=== PATIENT | male | born 1985 | race Caucasian/White ===

== ENCOUNTER 2017-04-27 16:05 | Emergency (ER) | payer OTHER ==
[~2017-04-27] VITALS: Ht 182.9 cm; Wt 78.0 kg
[~2017-04-27 16:05] MED LIST: ATENOLOL25 MG PO; CYCLOBENZAPRINE10 MG PO; DOXYCYCLINE HY100 MG PO; IBUPROFEN600 MG PO; KEFLEX500 MG PO; NAPROXEN500 MG PO; NORCO 10-325 T1 EACH PO; NORCO 5-325 TA1 EACH PO; OMEPRAZOLE20 M1 PO; OMEPRAZOLE20 MG PO; PRILOSEC20 MG PO; PROTONIX40 MG PO; TRAMADOL HCL50 MG PO; TYLENOL325 MG; ULTRAM50 MG PO
== END 2017-04-27 16:21 | disposition home or self-care (01) ==
LOC: ED 16:05
DX: Z00.8 Encounter for other general examination (principal)

== ENCOUNTER 2017-06-20 11:44 | Emergency (ER) | payer OTHER ==
[~2017-06-20] VITALS: Ht 182.9 cm; Wt 79.4 kg
== END 2017-06-20 12:02 | disposition home or self-care (01) ==
LOC: ED 11:44

== ENCOUNTER 2017-07-27 08:48 | Emergency (ER) | payer OTHER ==
[~2017-07-27] VITALS: Ht 182.9 cm; Wt 79.4 kg
--- NOTE | 2017-07-27 18:17 | EKG ---
[facility] [address] [facility] [place] [address] Signed Normal sinus rhythm with sinus arrhythmia Normal ECG No previous ECGs available Confirmed by NAILA SHARPE MD ([id number] on 07/27/2017 6:17:20 PM Electronically Signed By: NAILA SHARPE MD 07/27/17 181 PATIENT NAME: JONNATHAN MOSES Electrocardiogram DATE OF : 85 PHYSICIAN: NAILA SHARPE MD REPORT #: [id number] REPORT IS CONFIDENTIAL AND NOT TO BE RELEASED WITHOUT AUTHORIZATION
== END 2017-07-27 11:58 | disposition home or self-care (01) ==
LOC: ED 08:48
DX: S06.0X9A Concussion with loss of consciousness of unspecified duration, initial encounter (principal); K21.9 Gastro-esophageal reflux disease without esophagitis; Z79.899 Other long term (current) drug therapy; F17.200 Nicotine dependence, unspecified, uncomplicated; Z88.0 Allergy status to penicillin; Z98.890 Other specified postprocedural states; W19.XXXA Unspecified fall, initial encounter
CPT/HCPCS: 36415; 70450; 72125; 80053; 84484; 85025; 93005; 93010; 99284; J7030

== ENCOUNTER 2017-08-05 12:20 | Emergency (ER) | payer OTHER ==
[~2017-08-05] VITALS: Ht 182.9 cm; Wt 76.2 kg
[2017-08-05] MEDS ORDERED: CALCIUM CITRAT200 MG PO (12:36)
== END 2017-08-05 12:40 | disposition home or self-care (01) ==
LOC: ED 12:20
DX: S01.21XA Laceration without foreign body of nose, initial encounter (principal); W22.8XXA Striking against or struck by other objects, initial encounter; Y99.0 Civilian activity done for income or pay

== ENCOUNTER 2017-08-10 17:50 | Emergency (ER) | payer OTHER ==
[~2017-08-10] VITALS: Ht 182.9 cm; Wt 76.2 kg
[~2017-08-10 17:50] MED LIST changes: +CALCIUM CITRAT200 MG PO
== END 2017-08-10 19:16 | disposition home or self-care (01) ==
LOC: ED 17:50
DX: S93.602A Unspecified sprain of left foot, initial encounter (principal); F17.200 Nicotine dependence, unspecified, uncomplicated; K21.9 Gastro-esophageal reflux disease without esophagitis; Z98.890 Other specified postprocedural states; Z88.0 Allergy status to penicillin; Z79.899 Other long term (current) drug therapy; V89.9XXA Person injured in unspecified vehicle accident, initial encounter
CPT/HCPCS: 73610; 73630; 99283

== ENCOUNTER 2025-04-07 23:40 | Emergency (ER) | payer OTHER ==
[~2025-04-07] VITALS: Ht 182.9 cm; Wt 83.1 kg
[2025-04-08 00:35] LABS: BASOPHILS 0.9 % (0.2-1.2); EOSINOPHILS 2.0 % (0.8-7.0); LYMPHOCYTES 20.6 % (21.8-53.1); MCH 29.9 PG (25.7-32.2); MCHC 33.3 g/dL (32.3-36.5); MCV 89.8 fL (79.0-92.2); MONOCYTES 9.2 % (5.3-12.2); NEUTROPHILS 67.0 % (34.0-67.9); RBC 4.98 M/uL (4.63-6.08)
[2025-04-08 01:06] LABS: ALCOHOL, MEDICAL <3 ng/dL (<3); ALT (SGPT) 27 U/L (14-59); AST (SGOT) 18 U/L (15-37); GLOMERULAR FILTRATION RATE,EST 119 mL/min (>60); PROTEIN, TOTAL 7.1 g/dL (6.4-8.2); TSH, 3RD GENERATION 2.722 uIU/mL (0.358-3.740); UREA NITROGEN 7 mg/dL (7-18)
[2025-04-08 05:25] LABS: BLOOD/HGB, URINE NEGATIVE (Negative); KETONE, URINE NEGATIVE (Negative); LEUK ESTERASE, URINE NEGATIVE (negative); NITRITE, URINE NEGATIVE (negative)
[2025-04-08 05:30] LABS: AMPHETAMINES, URINE NEGATIVE (NEGATIVE); BARBITURATES, URINE NEGATIVE (NEGATIVE); BENZODIAZEPINE, URINE NEGATIVE (NEGATIVE); CANNABINOID, URINE NEGATIVE (NEGATIVE); COCAINE, URINE NEGATIVE (NEGATIVE); ECSTASY, URINE NEGATIVE (NEGATIVE); FENTANYL, URINE NEGATIVE (NEGATIVE); METHADONE, URINE NEGATIVE (NEGATIVE); OPIATES, URINE NEGATIVE (NEGATIVE); OXYCODONE, URINE NEGATIVE (NEGATIVE); PHENCYCLIDINE, URINE NEGATIVE (NEGATIVE)
[2025-04-08 12:56] VITALS: BP 138/74
== END 2025-04-08 13:00 | disposition home or self-care (01) ==
LOC: ED 23:40
PROVIDERS: Family Medicine
DX: F32.A Depression, unspecified (principal); R45.851 Suicidal ideations; F43.20 Adjustment disorder, unspecified; K21.9 Gastro-esophageal reflux disease without esophagitis; F17.200 Nicotine dependence, unspecified, uncomplicated; Z88.0 Allergy status to penicillin
CPT/HCPCS: 36415; 80053; 80307; 81003; 84443; 85025; 99285; G0480

== ENCOUNTER 2025-05-21 10:26 | Emergency (ER) | payer OTHER ==
[~2025-05-21] VITALS: Ht 182.9 cm; Wt 87.8 kg
[2025-05-21] MEDS ORDERED: FLUOXETINE HCL20 MG PO (10:40)
[2025-05-21] MEDS ORDERED: FAMOTIDINE 20 MG TAB PO ONE (10:45)
[2025-05-21] MEDS ORDERED: predniSONE 20 MG TAB PO ONE (10:45)
[2025-05-21 10:48] LABS: BASOPHILS 0.2 % (0.2-1.2); EOSINOPHILS 0.4 % (0.8-7.0); LYMPHOCYTES 14.2 % (21.8-53.1); MCH 30.1 PG (25.7-32.2); MCHC 34.2 g/dL (32.3-36.5); MCV 87.8 fL (79.0-92.2); MONOCYTES 8.4 % (5.3-12.2); NEUTROPHILS 76.4 % (34.0-67.9); RBC 5.39 M/uL (4.63-6.08)
[2025-05-21 11:02] LABS: ALT (SGPT) 22.0 U/L (14-59); AST (SGOT) 17.0 U/L (15-37); GLOMERULAR FILTRATION RATE,EST 101.0 mL/min (>60); PROTEIN, TOTAL 6.8 g/dL (6.4-8.2); UREA NITROGEN 7.0 mg/dL (7-18)
[2025-05-21] MEDS ORDERED: PREDNISONE20 MG PO (11:29)
[2025-05-21 11:37] VITALS: BP 133/90
== END 2025-05-21 11:37 | disposition home or self-care (01) ==
LOC: ED 10:26
PROVIDERS: Emergency Medicine
DX: L30.9 Dermatitis, unspecified (principal); F17.200 Nicotine dependence, unspecified, uncomplicated; Z88.0 Allergy status to penicillin; Z79.899 Other long term (current) drug therapy
CPT/HCPCS: 36415; 80053; 85025; 99283; J7512

== ENCOUNTER 2025-08-11 11:34 | Emergency (ER) | payer OTHER ==
[~2025-08-11] VITALS: Ht 182.9 cm; Wt 90.8 kg
[~2025-08-11 11:34] MED LIST changes: +FLUOXETINE HCL20 MG PO; +PREDNISONE20 MG PO
[2025-08-11] MEDS ORDERED: KETOROLAC TROMETHAMINE 15 MG/ML VIAL IV ONE (12:15)
[2025-08-11] MEDS ORDERED: KETOROLAC TROMETHAMINE 30 MG/ML VIAL IM ONE (12:15)
[2025-08-11 13:30] VITALS: BP 125/77
== END 2025-08-11 13:25 | disposition home or self-care (01) ==
LOC: ED 11:34
DX: M25.562 Pain in left knee (principal); F17.200 Nicotine dependence, unspecified, uncomplicated; Z88.0 Allergy status to penicillin
CPT/HCPCS: 73560; 96372; 99283; J1885